=== PATIENT | female | born 1995 | race Caucasian/White ===

== ENCOUNTER 2018-04-02 07:30 | Emergency (ER) | payer OTHER ==
[~2018-04-02] VITALS: Ht 152.4 cm; Wt 61.2 kg
[~2018-04-02 07:30] MED LIST: AMOXICILLIN500 MG PO; AUGMENTIN 875875 MG PO; BACTRIM DS 8001 TA1 PO; BENTYL10 MG PO; BIRTH CONTROL1 EAC1 PO; MOTRIN600 MG PO; MOTRIN800 MG PO; Miralax Powder255 GM PO; NAPROSYN500 MG PO; NKHM; OMNICEF300 MG PO; ROBITUSSIN DM120 ML PO; TESSALON PERLE200 MG PO; ZITHROMAX Z PA250 MG PO; ZYRTEC10 M1 PO
[2018-04-02 07:31] VITALS: BP 108/64
[2018-04-02] MEDS ORDERED: CYCLOBENZAPRINE10 MG PO (07:50)
[2018-04-02] MEDS ORDERED: PREDNISONE50 MG PO (07:50)
== END 2018-04-02 07:59 | disposition home or self-care (01) ==
LOC: ED 07:30
DX: S46.912A Strain of unspecified muscle, fascia and tendon at shoulder and upper arm level, left arm, initial encounter (principal); Z79.899 Other long term (current) drug therapy; X58.XXXA Exposure to other specified factors, initial encounter; Y93.89 Activity, other specified; Y92.89 Other specified places as the place of occurrence of the external cause; Y99.8 Other external cause status

== ENCOUNTER 2020-04-30 08:56 | Emergency (ER) | payer OTHER ==
[~2020-04-30] VITALS: Ht 152.4 cm; Wt 61.2 kg
[~2020-04-30 08:56] MED LIST changes: +CYCLOBENZAPRINE10 MG PO; +PREDNISONE50 MG PO
[2020-04-30 09:05] VITALS: BP 128/75
[2020-04-30 09:37] LABS: BASO % 0.4 % (0.0-1.0); EOS % 0.6 % (1.0-4.0); HEMATOCRIT 43.9 % (37.0-47.0); LYMPH # 1.7 10*3/uL (1.3-4.4); LYMPH % 24.5 % (27.0-41.0); MEAN CELL VOLUME 89.8 fl (81.0-99.0); MEAN CORPUSCULAR HGB 30.5 pg (27.0-31.0); MEAN CORPUSCULAR HGB CONC 33.9 g/dl (33.0-37.0); MEAN PLATELET VOLUME 10.9 fl (9.6-12.3); MONO # 0.4 10*3/uL (0.1-1.0); MONO % 5.4 % (3.0-9.0); NEUT # 4.7 10*3/uL (2.3-7.9); PLATELET COUNT AUTOMATED 204 10*3/uL (130-400); RED BLOOD COUNT 4.89 10*6/uL (4.10-5.10); RED CELL DISTRI WIDTH 11.8 % (0-14.5); WHITE BLOOD COUNT 6.9 10*3/uL (4.8-10.8)
[2020-04-30 09:49] LABS: ACT PARTIAL THROMBO TIME 24.4 SECONDS (20.0-32.1); INTERNATIONAL NORM RATIO 1.1 (2.0-3.5)
[2020-04-30 09:54] LABS: ALBUMIN 3.9 gm/dl (3.1-4.5); ALKALINE PHOSPHATASE 65 U/L (45-117); BUN 6 mg/dl (7-24); CHLORIDE 113 mmol/L (98-107); CREATININE 0.79 mg/dL (0.55-1.02); POTASSIUM 3.7 mmol/L (3.5-5.1); SGOT/AST 11 IU/L (3-35); SGPT/ALT 21 U/L (12-78); SODIUM 140 mmol/L (136-145); TOTAL PROTEIN 7.2 gm/dL (6.4-8.2)
[2020-04-30 09:56] LABS: B-hCG (QUALITATIVE) NEGATIVE (NEGATIVE)
== END 2020-04-30 11:21 | disposition home or self-care (01) ==
LOC: ED 08:56
PROVIDERS: Emergency Medicine
DX: S06.0X9A Concussion with loss of consciousness of unspecified duration, initial encounter (principal); Z79.899 Other long term (current) drug therapy; V49.9XXA Car occupant (driver) (passenger) injured in unspecified traffic accident, initial encounter; Y93.89 Activity, other specified; Y92.89 Other specified places as the place of occurrence of the external cause; Y99.8 Other external cause status

== ENCOUNTER 2020-07-29 20:22 | Emergency (ER) | payer OTHER ==
[~2020-07-29] VITALS: Ht 152.4 cm; Wt 61.2 kg
[2020-07-29 21:21] VITALS: BP 117/75
[2020-07-29] MEDS ORDERED: ZOFRAN4 MG PO (21:35)
[2020-07-29] MEDS ORDERED: OMEPRAZOLE40 MG PO (21:35)
== END 2020-07-29 21:49 | disposition home or self-care (01) ==
LOC: ED 20:22
DX: U07.1 COVID-19 (principal); Z79.899 Other long term (current) drug therapy